=== PATIENT | male | born 1990 | race Caucasian/White ===

== ENCOUNTER 2017-05-16 09:20 | Outpatient (CLI) | payer OTHER, MEDICAID ==
[2017-05-16 17:42] LABS: BASOPHILS % (AUTO) 0.3 %; EOSINOPHILS % (AUTO) 0.6 %; HGB - HEMOGLOBIN 15.4 g/dL (14.0-18.0); LYMPHOCYTES # (AUTO) 1.3 10^3/uL (1.5-3.5); LYMPHOCYTES % (AUTO) 27.9 %; MEAN CORPUSCULAR HEMOGLOBIN 30.9 pg (27.0-31.0); MEAN PLATELET VOLUME 8.1 fL (7.4-11.4); MONOCYTES # (AUTO) 0.3 10^3/uL (0.0-1.0); MONOCYTES % (AUTO) 7.2 %; NEUTROPHILS # (AUTO) 2.9 10^3/uL (1.5-6.6); PLT - PLATELET COUNT 175 10^3/uL (130-450); RED BLOOD COUNT 4.98 10^6/uL (4.70-6.10); RED CELL DISTRIBUTION WIDTH 12.7 % (12.0-15.0); WHITE BLOOD COUNT 4.6 x10^3/uL (4.8-10.8)
[2017-05-16 18:41] LABS: ALBUMIN 4.3 g/dL (3.2-5.5); ALBUMIN/GLOBULIN RATIO 1.8 (1.0-2.2); ALKALINE PHOSPHATASE 56 IU/L (42-121); ALT ALANINE AMINOTRANSFERASE 16 IU/L (10-60); AST ASPARTATE AMINOTRANSFERASE 19 IU/L (10-42); BUN - BLOOD UREA NITROGEN 16 mg/dL (6-20); CARBON DIOXIDE - CO2 29 mmol/L (21-32); CHLORIDE 105 mmol/L (101-111); CHOL/HDL RATIO 2.7 (<5.0); CHOLESTEROL 136 mg/dL; CREATININE 0.9 mg/dL (0.6-1.2); GFR - MDRD 101 (>89); GLUCOSE 79 mg/dL (70-100); HDL CHOLESTEROL 50 mg/dL; SODIUM 139 mmol/L (135-145); TOTAL PROTEIN 6.7 g/dL (6.7-8.2)
[2017-05-16 18:53] LABS: THYROID STIMULATING HORMONE 1.48 uIU/mL (0.34-5.60)
[2017-05-16 18:54] LABS: FREE T4 (FREE THYROXINE) 0.81 ng/dL (0.58-1.64)
[2017-05-16 18:58] LABS: TOTAL T3 0.8 ng/mL (0.87-1.78)
[2017-05-16 18:59] LABS: FERRITIN 80.6 ng/mL (23.9-336.2)
[2017-05-16 19:03] LABS: LDL CHOLESTEROL,DIRECT 72 mg/dL; LDLD/HDL RATIO 1.4 (<3.6)
[2017-05-22 16:06] LABS: T3 REVERSE 19 ng/dL (8-25)
== END 2017-05-16 09:21 | disposition home or self-care (01) ==
LOC: LAB.F 09:20
PROVIDERS: ATTEND Family Medicine
DX: Z00.00 Encounter for general adult medical examination without abnormal findings (principal); R53.83 Other fatigue; E03.9 Hypothyroidism, unspecified; E55.9 Vitamin D deficiency, unspecified
CPT/HCPCS: 36415; 80053; 80061; 82306; 82626; 82728; 83721; 84439; 84443; 84480; 84481; 84482; 85025

== ENCOUNTER 2018-12-10 15:49 | Outpatient (CLI) | payer MEDICAID | END 2018-12-10 15:50 | disposition home or self-care (01) | LOC: LAB.S 15:49 | PROVIDERS: ATTEND Family Medicine | DX: Z00.00 Encounter for general adult medical examination without abnormal findings (principal); R53.83 Other fatigue; E03.9 Hypothyroidism, unspecified; R73.09 Other abnormal glucose ==

== ENCOUNTER 2018-12-11 10:31 | Outpatient (CLI) | payer MEDICAID ==
[2018-12-11 17:41] LABS: BASOPHILS % (AUTO) 0.6 %; EOSINOPHILS # (AUTO) 0.1 10^3/uL (0.0-0.7); EOSINOPHILS % (AUTO) 1.4 %; HGB - HEMOGLOBIN 14.9 g/dL (14.0-18.0); LYMPHOCYTES # (AUTO) 1.1 10^3/uL (1.5-3.5); LYMPHOCYTES % (AUTO) 29.8 %; MEAN CORPUSCULAR HEMOGLOBIN 31.2 pg (27.0-31.0); MEAN CORPUSCULAR HGB CONC 33.7 g/dL (32.0-36.0); MEAN CORPUSCULAR VOLUME 92.7 fL (80.0-94.0); MEAN PLATELET VOLUME 10.2 fL (7.4-11.4); MONOCYTES # (AUTO) 0.2 10^3/uL (0.0-1.0); MONOCYTES % (AUTO) 5.5 %; NEUTROPHILS # (AUTO) 2.3 10^3/uL (1.5-6.6); NEUTROPHILS % (AUTO) 62.4 %; PLT - PLATELET COUNT 197 10^3/uL (130-450); RED BLOOD COUNT 4.77 10^6/uL (4.70-6.10); RED CELL DISTRIBUTION WIDTH 11.9 % (12.0-15.0); WHITE BLOOD COUNT 3.6 x10^3/uL (4.8-10.8)
[2018-12-11 18:27] LABS: ALBUMIN 4.1 g/dL (3.2-5.5); ALBUMIN/GLOBULIN RATIO 1.7 (1.0-2.2); BILIRUBIN,TOTAL 0.8 mg/dL (0.2-1.0); CALCIUM 9.3 mg/dL (8.5-10.3); CREATININE 0.9 mg/dL (0.6-1.2); TOTAL PROTEIN 6.5 g/dL (6.7-8.2)
[2018-12-11 18:35] LABS: HB2 TOTAL 15.8 g/dL; HEMOGLOBIN A1C 0.48 g/dL; HEMOGLOBIN A1C % 4.9 % (4.6-6.2); THYROID STIMULATING HORMONE 1.69 uIU/mL (0.34-5.60)
[2018-12-11 18:37] LABS: FREE T4 (FREE THYROXINE) 0.86 ng/dL (0.58-1.64)
[2018-12-11 18:42] LABS: TOTAL T3 1.21 ng/mL (0.87-1.78)
[2018-12-11 18:43] LABS: FERRITIN 50.9 ng/mL (23.9-336.2)
[2018-12-12 09:26] LABS: HOMOCYSTEINE 7.1 umol/L (<11.4)
== END 2018-12-11 10:32 | disposition home or self-care (01) ==
LOC: LAB.S 10:31
PROVIDERS: ATTEND Family Medicine
DX: Z00.00 Encounter for general adult medical examination without abnormal findings (principal); R53.83 Other fatigue; E03.9 Hypothyroidism, unspecified; R73.09 Other abnormal glucose
CPT/HCPCS: 36415; 80053; 82626; 82728; 83036; 83090; 84439; 84443; 84480; 84481; 85025

== ENCOUNTER 2024-01-24 17:23 | Emergency (ER) | payer MEDICAID ==
[2024-01-24 17:40] VITALS: BP 105/70; O2SAT 100
--- NOTE | 2024-01-24 18:01 | ED Physician Documentation ---
History of Present Illness - Stated complaint Stated Complaint: - Chief complaint Chief Complaint: Abd Pain - Additonal information Additional information: 33-year-old male with history of developmental delay presents emergency department with his mother for concerns of issues he has had thorough workup outpatient with different urologist and other specialists but he continues to complain of burning sensation to bilateral upper thigh region no fevers or chills no CVA tenderness he does have urinary urgency and frequency but mother reports this has been going on chronically for years. PD PAST MEDICAL HISTORY - Past Medical History Past Medical History: Yes Cardiovascular: None Respiratory: None Endocrine/Autoimmune: None GI: None : None HEENT: None Musculoskeletal: None Derm: None - Past Surgical History Past Surgical History: No - Present Medications Home Medications: Ambulatory Orders Medication Instructions Recorded Confirmed Calcium Carbonate/Vitamin D3 02/05/13 02/05/13 [Klever-Quick Liquid] Multivit, Iron, Min #4, FA 1 each PO 02/05/13 02/05/13 [Multichew Chewable Tablet] Vit D3/Folic Acid/B2/B6/B12 02/05/13 02/05/13 [Folgard Tablet] hydrOXYzine HCL [Hydroxyzine HCl] 25 mg PO TID #20 tablet 01/24/24 - Allergies Allergies/Adverse Reactions: Allergies Allergy/AdvReac Type Severity Reaction Status Date / Time No Known Drug Allergies Allergy Verified 01/24/24 17:31 - Social History Does the pt smoke?: No Smoking Status: Never smoker Does the pt drink ETOH?: No Does the pt have substance abuse?: No - Immunizations Immunizations are current?: Yes - POLST Patient has POLST: No PD ED PE NORMAL - General General: No acute distress, Well developed/nourished - HEENT HEENT: Atraumatic, PERRL - Male Male : New Patient Escort present (BRITTNEY Macdonald present) - Back Back: No CVA TTP - Derm Derm: Normal color, Warm and dry, No rash PD ED PE EXPANDED - Male Male : Normal Exam, Circumcised, Testes descended bret, New Patient Escort present (Torres LUGO present). No: Skin lesions, Discharge, Testicular Mass, Normal lie/cremastaric, Tenderness Results - Vitals Vitals: Vital Signs - 24 hr 01/24/24 01/24/24 17:31 19:43 Temperature 36.4 C L Heart Rate 54 L 54 L Respiratory 18 18 Rate Blood Pressure 105/70 105/70 O2 Saturation 100 100 Oxygen O2 Source Room air - Labs Labs: Laboratory Tests 01/24/24 18:01 Urine Color YELLOW Urine Clarity CLEAR Urine pH 6.0 Ur Specific [place] 1.020 Urine Protein NEGATIVE Urine Glucose (UA) NEGATIVE Urine Ketones NEGATIVE Urine Occult Blood NEGATIVE Urine Nitrite NEGATIVE Urine Bilirubin NEGATIVE Urine Urobilinogen 0.2 (NORMAL) Ur Leukocyte Esterase NEGATIVE Ur Microscopic Review NOT INDICATED Urine Culture Comments NOT INDICATED PD Medical Decision Making - ED course ED course: 33-year-old developmentally delayed male presents emergency department his mother for concerns of urinary frequency. He is not having any fevers or chills no new acute changes but mother's main concern is that we do a CT KUB. Given that he has no hematuria no fevers or chills no acute pain no CVA tenderness I do not see an indication to do an emergent KUB when this is already scheduled outpatient. Mother is understanding and I empathized with her the frustration with waiting to have outpatient imaging complete but I informed her that unfortunately have to use [facility] for emergencies. A exam was complete in the presence of BRITTNEY Macdonald and there is no acute abnormalities or findings. This also sounds like it could be related to psychosomatic and mother also reports this is likely psychosomatic and again an emergent KUB CT is even less warranted. They are told to follow-up with her primary care provider for possible psychiatric referral to help with these ruminations. Return precautions given all questions answered patient safe for discharge. Departure - Departure Disposition: 01 Home, Self Care Clinical Impression: Urinary urgency Instructions: Stress Relief Activities, Stress Relief Relaxation Prescriptions: hydrOXYzine HCL [Hydroxyzine HCl] 25 mg PO TID #20 tablet Comments: Thank you for trusting us with your care. Please follow-up with your primary care provider for further evaluation of your chronic urinary complaints and make your outpatient appointment for your CT KUB for your urological complaints. I would also pursue following up with a psychiatrist for further evaluation of what is causing this triggering anxiety making it so that you cannot pee or defecate. I have sent a prescription of hydroxyzine to [facility] please pick this up you can take this up to 3 times a day as needed for anxiety. Forms: PCP List Discharge Date/Time: 01/24/24 19:55
[2024-01-24 18:10] LABS: BILIRUBIN,URINE NEGATIVE (NEGATIVE); CLARITY,URINE CLEAR (CLEAR); GLUCOSE, URINE (UA) NEGATIVE (NEGATIVE); KETONES,URINE (UA) NEGATIVE (NEGATIVE); LEUKOCYTE ESTERASE, URINE NEGATIVE (NEGATIVE); NITRITE,URINE NEGATIVE (NEGATIVE); OCCULT BLOOD,URINE NEGATIVE (NEGATIVE); PROTEIN,URINE NEGATIVE (NEGATIVE); UROBILINOGEN,URINE 0.2 (NORMAL) E.U./dL (NORMAL)
[2024-01-24] MEDS: hydrOXYzine PAMOATE 25 MG CAPSULE PO STA (19:39)
== END 2024-01-24 19:55 | disposition home or self-care (01) ==
LOC: ED 17:23
DX: R39.15 Urgency of urination (principal); R35.0 Frequency of micturition
CPT/HCPCS: 81003; 99283; A9270; 81001; 87086

== ENCOUNTER 2024-01-27 14:36 | Outpatient (CLI) | payer MEDICAID ==
--- NOTE | 2024-01-27 15:08 | XRAY Report ---
PROCEDURE: Abdomen 1 V INDICATIONS: URINARY URGENCY TECHNIQUE: One view of the abdomen acquired. COMPARISON: None. FINDINGS: Surgical changes and devices: None. Bowel: Bowel gas pattern is normal. Moderate colonic stool load. Soft tissues: No suspicious abdominal calcifications. Visualized solid organ contours appear normal in size. Bones: No suspicious bony lesions. IMPRESSION: No acute abdominal pathology. Reviewed by: Roland Huggins MD on 01/27/2024 3:06 PM PDT Approved by: Roland Huggins MD on 01/27/2024 3:06 PM PDT Station ID: [id number]
== END 2024-01-27 14:37 | disposition home or self-care (01) ==
LOC: DI.S 14:36
PROVIDERS: ATTEND Family Medicine
DX: R35.0 Frequency of micturition (principal); N23 Unspecified renal colic; R61 Generalized hyperhidrosis; R32 Unspecified urinary incontinence

== ENCOUNTER 2024-02-19 19:58 | Outpatient (CLI) | payer MEDICAID ==
[2024-02-19 20:25] LABS: BASOPHILS % (AUTO) 0.3 %; EOSINOPHILS % (AUTO) 0.6 %; HCT - HEMATOCRIT 44.5 % (42.0-52.0); HGB - HEMOGLOBIN 15.5 g/dL (14.0-18.0); LYMPHOCYTES # (AUTO) 1.3 10^3/uL (1.5-3.5); LYMPHOCYTES % (AUTO) 18.4 %; MEAN CORPUSCULAR HEMOGLOBIN 31.6 pg (27.0-31.0); MEAN CORPUSCULAR HGB CONC 34.8 g/dL (32.0-36.0); MEAN CORPUSCULAR VOLUME 90.6 fL (80.0-94.0); MEAN PLATELET VOLUME 9.3 fL (7.4-11.4); MONOCYTES # (AUTO) 0.5 10^3/uL (0.0-1.0); MONOCYTES % (AUTO) 7.5 %; NEUTROPHILS # (AUTO) 5.3 10^3/uL (1.5-6.6); NEUTROPHILS % (AUTO) 73.1 %; PLT - PLATELET COUNT 211 10^3/uL (130-450); RED BLOOD COUNT 4.91 10^6/uL (4.70-6.10); RED CELL DISTRIBUTION WIDTH 11.8 % (12.0-15.0); WHITE BLOOD COUNT 7.2 x10^3/uL (4.8-10.8)
[2024-02-19 20:42] LABS: ALBUMIN 4.3 g/dL (3.2-5.5); ALBUMIN/GLOBULIN RATIO 2.7 (1.0-2.2); ALKALINE PHOSPHATASE 59 IU/L (42-121); ALT ALANINE AMINOTRANSFERASE 15 IU/L (10-60); AST ASPARTATE AMINOTRANSFERASE 16 IU/L (10-42); BILIRUBIN,TOTAL 0.3 mg/dL (0.2-1.0); BUN - BLOOD UREA NITROGEN 17 mg/dL (6-20); CARBON DIOXIDE - CO2 31 mmol/L (21-32); CHLORIDE 101 mmol/L (101-111); CREATININE 0.9 mg/dL (0.6-1.3); CRP - C-REACTIVE PROTEIN < 0.5 mg/dL (<0.5); GFR - MDRD 97 (>89); GLUCOSE 103 mg/dL (74-104); POTASSIUM 4.1 mmol/L (3.5-4.5); SODIUM 137 mmol/L (135-145); TOTAL PROTEIN 5.9 g/dL (6.4-8.9)
[2024-02-19 20:55] LABS: THYROID STIMULATING HORMONE 1.41 uIU/mL (0.34-5.60)
[2024-02-19 21:01] LABS: ESTIMATED AVERAGE GLUCOSE 85 mg/dL (70-100); HEMOGLOBIN A1c% 4.6 % (4.27-6.07)
== END 2024-02-19 19:59 | disposition home or self-care (01) ==
LOC: LAB 19:58
PROVIDERS: ATTEND Registered Nurse
DX: F34.1 Dysthymic disorder (principal); R53.81 Other malaise; R63.4 Abnormal weight loss; R35.0 Frequency of micturition
CPT/HCPCS: 36415; 80050; 83036; 86140; 87086